=== PATIENT | male | born 1940 | race Caucasian/White ===

== ENCOUNTER 2017-11-06 21:41 | Emergency (ER) | payer MEDICARE ==
--- NOTE | 2017-11-06 22:24 | EDM.PDOC ---
ED HPI GENERAL MEDICAL PROBLEM - General Chief Complaint: General Stated Complaint: LIGHTHEADED, BLOODY STOOL, MALAISE Time Seen by Provider: 11/06/17 22:09 Source of Information: Reports: Patient History Limitations: Reports: No Limitations - History of Present Illness INITIAL COMMENTS - FREE TEXT/NARRATIVE: Patient presents with feeling lightheaded and having burgundy stools. Patient had 5 vessel bypass and an aortic valve replacement on 10-18-2017. Had received 2 units of blood in [place]. On returning home from [place] after 6 days post op , patient had noted dark tarry stools. Was advised to monitor and follow up here in clinic. Was seen in [place] by myself, hemoglobin was maintaining at 8.5, was started on Protonix and followed up closely in clinic. Was started ASA after surgery, no other anticoagulants. Patient had improvement of his hemoglobin with his last one being at 9.1. He was seen 2 days ago in clinic due to shortness of breath. Had lab work, chest xray and CTA. Noted mild CHF and was started on Lasix. Yesterday am, was feeling good and thought he had "turned the corner". PT was there to work with him and he did well. Last evening, started to feel more weak and dizzy, thought it was related to being dehydrated so has been pushing fluids. Now today, developed burgundy stools, has had 3 now this evening. Denies chest pain. Is short of breath and weak. Gets clammy/sweating with activity. Onset: Today, Gradual Duration: Hour(s): Location: Reports: Abdomen Improves with: Reports: Rest Worsens with: Reports: Movement Associated Symptoms: Reports: Diaphoresis, Shortness of Breath, Weakness. Denies: Chest Pain, Cough, Fever/Chills, Nausea/Vomiting - Related Data Allergies Allergy/AdvReac Type Severity Reaction Status Date / Time No Known Allergies Allergy Verified 11/06/17 21:44 Past Medical History HEENT History: Reports: Hard of Hearing Cardiovascular History: Reports: Heart Failure, Hypertension Respiratory History: Reports: Asthma Gastrointestinal History: Reports: GI Bleed - Past Surgical History HEENT Surgical History: Reports: None Cardiovascular Surgical History: Reports: Coronary Artery Bypass, Valve Replacement Respiratory Surgical History: Reports: None GI Surgical History: Reports: None Musculoskeletal Surgical History: Reports: Joint Replacement Social & Family History - Family History Family Medical History: Noncontributory - Tobacco Use Smoking Status *Q: Former Smoker Used Tobacco, but Quit: Yes Month/Year Tobacco Last Used: 1999 - Alcohol Use Days Per Week of Alcohol Use: 4 Number of Drinks Per Day: 3 Total Drinks Per Week: 12 - Recreational Drug Use Recreational Drug Use: No ED ROS GENERAL - Review of Systems Review Of Systems: See Below Constitutional: Reports: Weakness, Fatigue. Denies: Fever, Chills, Malaise, Decreased Appetite HEENT: Reports: No Symptoms Respiratory: Reports: Shortness of Breath. Denies: Cough Cardiovascular: Reports: Edema, Lightheadedness. Denies: Chest Pain Endocrine: Reports: Fatigue GI/Abdominal: Reports: Abdominal Pain (crampy prior to loose stools), Bloody Stool, Diarrhea. Denies: Nausea, Vomiting : Reports: No Symptoms Musculoskeletal: Reports: No Symptoms Skin: Reports: Pallor, Diaphoresis Neurological: Reports: No Symptoms ED EXAM, GENERAL - Physical Exam Exam: See Below Exam Limited By: No Limitations General Appearance: Alert, WD/WN, Mild Distress Ears: Normal External Exam, Normal TMs Nose: Normal Inspection, Normal Mucosa, No Blood Throat/Mouth: Normal Inspection, Normal Oropharynx Head: Normocephalic Neck: Supple Respiratory/Chest: No Respiratory Distress, Lungs Clear, Normal Breath Sounds Cardiovascular: Regular Rate, Rhythm GI/Abdominal: Normal Bowel Sounds, Soft, Non-Tender Rectal (Males) Exam: Heme + Stool Extremities: Other (ecchymosis noted to left leg, swelling yet from surgery ) Neurological: Alert, Oriented Skin Exam: Cool, Pallor, Other (clammy) Course - Vital Signs Last Recorded V/S: Last Vital Signs Temp 99.5 F 11/06/17 23:29 Pulse 77 11/06/17 23:29 Resp 20 11/06/17 23:29 BP 89/48 L 11/06/17 23:29 Pulse Ox 98 11/06/17 21:52 - Orders/Labs/Meds Orders: Active Orders 24 hr Category Date Time Status Verify Patient Consent Obtain [RC] ASDIRECTED Care 11/06/17 22:23 Active Chest 2V [CR] Stat Exams 11/06/17 21:56 Taken Sodium Chloride 0.9% [Normal Saline] 250 ml Med 11/06/17 22:30 Active IV ASDIRECTED Peripheral IV Insertion Adult [OM.PC] Urgent Oth 11/06/17 22:22 Ordered Transfuse Red Blood Cells [COMM] Urgent Oth 11/06/17 22:22 Ordered Medication Orders Sodium Chloride (Normal Saline) 250 mls @ 75 mls/hr IV ASDIRECTED PAO Last Admin: 11/06/17 22:52 Dose: 75 mls/hr Labs: Laboratory Tests 11/06/17 11/06/17 11/06/17 Range/Units 21:56 21:56 21:56 WBC 8.3 (5.0-10.0) 10^3/uL RBC 2.61 L (4.50-6.00) 10^6/uL Hgb 7.4 L* (14.0-18.0) g/dL Hct 24.7 L (40.0-54.0) % MCV 94.6 H (82.0-94.0) fL MCH 28.4 (27.0-32.0) pg MCHC 30.0 L (33.0-38.0) g/dL RDW Coeff of Edyta 13.7 (11.0-15.0) % Plt Count 436 H (150-400) 10^3/uL Neut % (Auto) 72.6 (35-85) % Lymph % (Auto) 16.7 (10-55) % [place] % (Auto) 7.1 (0-16) % Eos % (Auto) 3.0 (0-5) % Baso % (Auto) 0.6 (0-3) % Neut # (Auto) 6.05 (1.80-7.00) 10^3/uL Lymph # (Auto) 1.39 (1.00-4.80) 10^3/uL [place] # (Auto) 0.59 (0.00-0.80) 10^3/uL Eos # (Auto) 0.25 (0.00-0.45) 10^3/uL Baso # (Auto) 0.05 10^3/uL D-Dimer, Quantitative 4.59 H (0.00-0.50) Sodium 138 (136-145) mEq/L Potassium 4.4 (3.5-5.0) mEq/L Chloride 102 (98-106) mEq/L Carbon Dioxide 29 (21-32) mmol/L BUN 33 H (7-18) mg/dL Creatinine 1.3 (0.7-1.3) mg/dL Est Cr Clr Drug Dosing 57.08 mL/min Estimated GFR (MDRD) 54 L (>=60) mL/min Glucose 176 H (75-99) mg/dL Calcium 8.2 L (8.4-10.1) mg/dL NT-Pro-B Natriuret Pep 907 (0-1000) pg/mL Blood Type Gel Antibody Screen Crossmatch 11/06/17 Range/Units 22:22 WBC (5.0-10.0) 10^3/uL RBC (4.50-6.00) 10^6/uL Hgb (14.0-18.0) g/dL Hct (40.0-54.0) % MCV (82.0-94.0) fL MCH (27.0-32.0) pg MCHC (33.0-38.0) g/dL RDW Coeff of Edyta (11.0-15.0) % Plt Count (150-400) 10^3/uL Neut % (Auto) (35-85) % Lymph % (Auto) (10-55) % [place] % (Auto) (0-16) % Eos % (Auto) (0-5) % Baso % (Auto) (0-3) % Neut # (Auto) (1.80-7.00) 10^3/uL Lymph # (Auto) (1.00-4.80) 10^3/uL [place] # (Auto) (0.00-0.80) 10^3/uL Eos # (Auto) (0.00-0.45) 10^3/uL Baso # (Auto) 10^3/uL D-Dimer, Quantitative (0.00-0.50) Sodium (136-145) mEq/L Potassium (3.5-5.0) mEq/L Chloride (98-106) mEq/L Carbon Dioxide (21-32) mmol/L BUN (7-18) mg/dL Creatinine (0.7-1.3) mg/dL Est Cr Clr Drug Dosing mL/min Estimated GFR (MDRD) (>=60) mL/min Glucose (75-99) mg/dL Calcium (8.4-10.1) mg/dL NT-Pro-B Natriuret Pep (0-1000) pg/mL Blood Type A NEGATIVE Gel Antibody Screen Negative Crossmatch See Detail Meds: Medications Generic Name Dose Route Start Last Admin Trade Name Pradeep PRN Reason Stop Dose Admin Sodium Chloride 250 mls @ 75 mls/hr 11/06/17 22:30 11/06/17 22:52 Normal Saline IV 75 mls/hr ASDIRECTED PAO Administration - Re-Assessments/Exams Free Text/Narrative Re-Assessment/Exam: 11/06/17 Contacted [facility] and spoke with Dr. Richards. Agreed to accept the patient in transfer. Discussed transfer with patient and family. Risks of transfer include worsening status to include vehicular crash or . Risks of nontransfer include worsening status, . Benefits of transfer include more specialized care at tertiary facility with surgical consultation. Benefits of nontransfer include care close to home. Patient agrees to transfer. Departure - Departure Time of Disposition: 23:41 Disposition: Home, Self-Care 01 Condition: Undetermined Clinical Impression: GI bleed - Discharge Information *PRESCRIPTION DRUG MONITORING PROGRAM REVIEWED*: No *COPY OF PRESCRIPTION DRUG MONITORING REPORT IN [place]: No Forms: ED Department Discharge Additional Instructions: Transfer ALS to [place] to Dr. Richards. - My Orders Last 24 Hours: My Active Orders 11/06/17 21:56 Chest 2V [CR] Stat 11/06/17 22:22 Peripheral IV Insertion Adult [OM.PC] Urgent Transfuse Red Blood Cells [COMM] Urgent 11/06/17 22:23 Verify Patient Consent Obtain [RC] ASDIRECTED 11/06/17 22:30 Sodium Chloride 0.9% [Normal Saline] 250 ml IV ASDIRECTED - Assessment/Plan Last 24 Hours: My Active Orders 11/06/17 21:56 Chest 2V [CR] Stat 11/06/17 22:22 Peripheral IV Insertion Adult [OM.PC] Urgent Transfuse Red Blood Cells [COMM] Urgent 11/06/17 22:23 Verify Patient Consent Obtain [RC] ASDIRECTED 11/06/17 22:30 Sodium Chloride 0.9% [Normal Saline] 250 ml IV ASDIRECTED
[2017-11-06] MEDS ORDERED: Sodium Chloride 0.9% 250 ML IV SCH (22:30)
== END 2017-11-06 23:45 ==
LOC: CC.ED 21:41 → MERGE 21:41 → CC.ED 23:45
DX: K92.2 Gastrointestinal hemorrhage, unspecified (principal); I11.0 Hypertensive heart disease with heart failure; I50.9 Heart failure, unspecified; J45.909 Unspecified asthma, uncomplicated; Z87.891 Personal history of nicotine dependence; Z95.1 Presence of aortocoronary bypass graft
CPT/HCPCS: 36415; 36430; 71046; 80048; 83880; 85025; 85379; 86850; 86900; 86901; 86920; 86922; 93005; 99285; J7030; P9016

== ENCOUNTER 2017-11-12 22:42 | Emergency (ER) | payer MEDICARE ==
--- NOTE | 2017-11-12 23:33 | EDM.PDOC ---
ED HPI GENERAL MEDICAL PROBLEM - General Chief Complaint: General Stated Complaint: CLAMMY Time Seen by Provider: 11/12/17 23:28 Source of Information: Reports: Patient History Limitations: Reports: No Limitations - History of Present Illness INITIAL COMMENTS - FREE TEXT/NARRATIVE: Julia is a pleasant 77 year old male with PMH significant for CAD, hypertension , hyperlipidemia, BPH, and asthma, who presents to the clinic with c/o dizziness and not feeling well. He reports that around 9 pm this evening he felt kind of clammy and dizzy. He reports he drank some milk and then went to bed. He woke up a few hours later and felt more clammy and dizzy so he presented to the ED. He reports his checked his blood pressure and it was elevated 160's. He did have 5 vessel bypass, a stent, and an aortic valve replacement on 10-18-2017. He then subsequently had a GI bleed after being on aspirin. He was transferred from our local ED to [facility] and then received ~ 5 units of PRBCs. He reports his hemoglobin on discharge was 8.1. He does report he has had occasional productive cough. Does report he has felt fatigued about the past month with everything going on. Reports he does have SOB at baseline, no increase in SOB. He denies any chest pain, N/V/D, bloody stools, abdominal pain. Onset: Today Onset Date: 11/12/17 Onset Time: 21:00 Duration: Intermittent Location: Reports: Head Quality: Reports: Other (dizziness) Associated Symptoms: Reports: cough w sputum, Diaphoresis, Fever/Chills, Shortness of Breath. Denies: Confusion, Chest Pain, Cough, Headaches, Loss of Appetite, Malaise, Nausea/Vomiting, Rash, Seizure, Syncope, Weakness - Related Data Allergies Allergy/AdvReac Type Severity Reaction Status Date / Time No Known Allergies Allergy Verified 11/12/17 22:55 Home Meds: Home Meds Fluticasone/Salmeterol [Advair 250-50 Diskus] 1 puff INH BID 09/09/13 [History] Albuterol Sulfate [Proair Hfa] 1 puff INH Q4H PRN 10/13/17 [History] Umeclidinium Chana [Incruse Ellipta*] 1 puff IH DAILY 10/13/17 [History] amLODIPine Besylate [Amlodipine Besylate] 10 mg PO DAILY 10/13/17 [History] Albuterol Sulfate [Proair Hfa] 1 puff IH DAILY 11/07/17 [History] Amiodarone [Cordarone] 200 mg PO DAILY 11/07/17 [History] Carvedilol [Coreg] 6.25 mg PO BID 11/07/17 [History] Furosemide [Lasix] 40 mg PO DAILY 11/07/17 [History] Lisinopril [Zestril] 2.5 mg PO DAILY 11/07/17 [History] Lutein/Minerals/Vit A,C & E [Ocuvite] 1 tab PO DAILY 11/07/17 [History] Montelukast [Singulair] 10 mg PO DAILY 11/07/17 [History] Potassium Chloride [Klor-Con M20] 20 meq PO DAILY 11/07/17 [History] Sertraline [Zoloft] 50 mg PO DAILY 11/07/17 [History] Tamsulosin [Tamsulosin 24 Hr] 0.4 mg PO DAILY 11/07/17 [History] Vit B Cmplx 3/Fa/Vit C/Biotin [Palak-Kath Rx Tablet] 1 tab PO DAILY 11/07/17 [ History] atorvaSTATin Calcium [Atorvastatin Calcium] 20 mg PO DAILY 11/07/17 [History] hydroCHLOROthiazide [Hydrochlorothiazide] 25 mg PO DAILY 11/07/17 [History] Past Medical History HEENT History: Reports: Hard of Hearing Cardiovascular History: Reports: Heart Failure, Hypertension Respiratory History: Reports: Asthma Gastrointestinal History: Reports: GI Bleed Hematologic History: Reports: Anemia - Past Surgical History HEENT Surgical History: Reports: None Cardiovascular Surgical History: Reports: Coronary Artery Bypass, Valve Replacement Respiratory Surgical History: Reports: None GI Surgical History: Reports: None Musculoskeletal Surgical History: Reports: Joint Replacement Social & Family History - Family History Family Medical History: Noncontributory - Tobacco Use Smoking Status *Q: Former Smoker Years of Tobacco use: 30 Packs/Tins Daily: 3 Used Tobacco, but Quit: Yes Month/Year Tobacco Last Used: 1999 - Alcohol Use Days Per Week of Alcohol Use: 5 Number of Drinks Per Day: 3 Total Drinks Per Week: 15 - Recreational Drug Use Recreational Drug Use: No ED ROS GENERAL - Review of Systems Review Of Systems: See Below Constitutional: Reports: Fever, Chills, Weakness, Fatigue HEENT: Reports: No Symptoms Respiratory: Reports: Shortness of Breath, Cough, Sputum. Denies: Wheezing, Pleuritic Chest Pain Cardiovascular: Reports: Dyspnea on Exertion, Lightheadedness. Denies: Chest Pain, Edema, Palpitations, Syncope Endocrine: Reports: Fatigue GI/Abdominal: Denies: Abdominal Pain, Black Stool, Bloody Stool, Constipation, Diarrhea, Nausea, Vomiting : Denies: Dysuria, Frequency, Urgency Musculoskeletal: Reports: No Symptoms Skin: Reports: No Symptoms Neurological: Reports: Dizziness. Denies: Headache, Numbness, Tingling, Weakness Psychiatric: Reports: No Symptoms Hematologic/Lymphatic: Reports: No Symptoms Immunologic: Reports: No Symptoms ED EXAM, GENERAL - Physical Exam Exam: See Below Exam Limited By: No Limitations General Appearance: Alert, WD/WN, No Apparent Distress Eye Exam: Bilateral Eye: EOMI, PERRL Head: Atraumatic, Normocephalic Neck: Normal Inspection, Supple, Non-Tender, Full Range of Motion Respiratory/Chest: No Respiratory Distress, No Accessory Muscle Use, Chest Non- Tender, Decreased Breath Sounds Cardiovascular: Normal Peripheral Pulses, Regular Rate, Rhythm, No Edema, No Murmur Peripheral Pulses: 2+: Dorsalis Pedis (L), Dorsalis Pedis (R) GI/Abdominal: Normal Bowel Sounds, Soft, Non-Tender, No Organomegaly, No Distention, No Abnormal Bruit, No Mass Back Exam: Normal Inspection, Full Range of Motion, NT Extremities: Normal Inspection, Normal Range of Motion, Non-Tender, No Pedal Edema, Normal Capillary Refill, Other (ecchymosis) Neurological: Alert, Oriented, CN II-XII Intact, Normal Cognition, Normal Gait, Normal Reflexes, No Motor/Sensory Deficits Psychiatric: Normal Affect, Normal Mood Skin Exam: Warm, Dry, Intact, Normal Color, No Rash, Ecchymosis Lymphatic: No Adenopathy EKG INTERPRETATION EKG Date: 11/13/17 Rhythm: NSR Bolt: Normal P-Wave: Present QRS: Normal ST-T: Other (T wave inversion) QT: Normal Comparison: No Change Course - Vital Signs Last Recorded V/S: Last Vital Signs Temp 99.2 F 11/13/17 00:26 Pulse 63 11/13/17 00:26 Resp 18 11/12/17 23:00 BP 117/64 11/13/17 00:26 Pulse Ox 96 11/13/17 00:26 - Orders/Labs/Meds Orders: Active Orders 24 hr Category Date Time Status EKG Documentation Completion [RC] STAT Care 11/12/17 23:07 Active Chest 2V [CR] Stat Exams 11/12/17 23:44 Taken Labs: Laboratory Tests 11/12/17 11/12/17 11/12/17 Range/Units 23:20 23:20 23:49 WBC 6.1 (5.0-10.0) 10^3/uL RBC 2.98 L (4.50-6.00) 10^6/uL Hgb 8.8 L (14.0-18.0) g/dL Hct 28.2 L (40.0-54.0) % MCV 94.6 H (82.0-94.0) fL MCH 29.5 (27.0-32.0) pg MCHC 31.2 L (33.0-38.0) g/dL RDW Coeff of Edyta 14.5 (11.0-15.0) % Plt Count 260 (150-400) 10^3/uL Neut % (Auto) 55.1 (35-85) % Lymph % (Auto) 25.2 (10-55) % [place] % (Auto) 11.1 (0-16) % Eos % (Auto) 8.1 H (0-5) % Baso % (Auto) 0.5 (0-3) % Neut # (Auto) 3.38 (1.80-7.00) 10^3/uL Lymph # (Auto) 1.55 (1.00-4.80) 10^3/uL [place] # (Auto) 0.68 (0.00-0.80) 10^3/uL Eos # (Auto) 0.50 H (0.00-0.45) 10^3/uL Baso # (Auto) 0.03 10^3/uL Sodium 141 (136-145) mEq/L Potassium 4.2 (3.5-5.0) mEq/L Chloride 103 (98-106) mEq/L Carbon Dioxide 31 (21-32) mmol/L BUN 15 D (7-18) mg/dL Creatinine 1.1 (0.7-1.3) mg/dL Est Cr Clr Drug Dosing 67.46 mL/min Estimated GFR (MDRD) > 60 (>=60) mL/min Glucose 97 D (75-99) mg/dL Calcium 8.2 L (8.4-10.1) mg/dL Troponin I 0.027 (0.00-0.06) ng/mL C-Reactive Protein 2.5 H (0.2-0.8) mg/dL Urine Color Yellow (YELLOW) Urine Appearance Clear (CLEAR) Urine pH 6.5 (4.5-8.0) Ur Specific [place] 1.015 (1.003-1.020) Urine Protein Negative (NEGATIVE) mg/dL Urine Glucose (UA) Negative (NEGATIVE) mg/dL Urine Ketones Negative (NEGATIVE) mg/dL Urine Occult Blood Negative (NEGATIVE) Urine Nitrite Negative (NEGATIVE) Urine Bilirubin Negative (NEGATIVE) Urine Urobilinogen 0.2 (0.2-1.0) EU/dL Ur Leukocyte Esterase Negative (NEGATIVE) Urine RBC Not seen (0-5) /HPF Urine WBC 0-5 (0-5) /HPF Ur Squamous Epith Cells Occasional H (NOT SEEN) /HPF - Re-Assessments/Exams Free Text/Narrative Re-Assessment/Exam: 11/13/17 00:21 Discussed labs, EKG, and CXR with patient and spouse. CXR shows small bilateral pleural effusions, but no infiltrates. VSS on RA. Patient alert and oriented. Does have some dizziness when up. Reports he feels comfortable going home. Departure - Departure Time of Disposition: 00:22 Disposition: Home, Self-Care 01 Condition: Good Clinical Impression: Status post coronary artery bypass graft Anemia Qualifiers: Anemia type: iron deficiency Iron deficiency anemia type: chronic blood loss Qualified Code(s): D50.0 - Iron deficiency anemia secondary to blood loss ( chronic) - Discharge Information *PRESCRIPTION DRUG MONITORING PROGRAM REVIEWED*: Not Applicable *COPY OF PRESCRIPTION DRUG MONITORING REPORT IN [place]: Not Applicable Instructions: Anemia Referrals: Chris Beard MD [Primary Care Provider] - Forms: ED Department Discharge Additional Instructions: Tylenol as needed for fever/discomfort Rest Push fluids Recheck in clinic tomorrow morning if still not feeling well, otherwise follow up with PCP in the next 5 days for ED recheck - My Orders Last 24 Hours: My Active Orders 11/12/17 23:07 EKG Documentation Completion [RC] STAT 11/12/17 23:44 Chest 2V [CR] Stat - Assessment/Plan Last 24 Hours: My Active Orders 11/12/17 23:07 EKG Documentation Completion [RC] STAT 11/12/17 23:44 Chest 2V [CR] Stat Plan: Patient discharged home in satisfactory condition. Voiced understanding to present to ED with any worsening symptoms or onset of chest pain.
[2017-11-12 23:40] LABS: CHLORIDE,CL 103 mEq/L (98-106); SODIUM,NA 141 mEq/L (136-145)
== END 2017-11-13 00:35 | disposition home or self-care (01) ==
LOC: CC.ED 22:42
DX: D50.0 Iron deficiency anemia secondary to blood loss (chronic) (principal); I11.0 Hypertensive heart disease with heart failure; I50.9 Heart failure, unspecified; Z87.891 Personal history of nicotine dependence; Z95.1 Presence of aortocoronary bypass graft
CPT/HCPCS: 36415; 71046; 80048; 81001; 84484; 85025; 86140; 93005; 99284

== ENCOUNTER 2019-10-14 13:18 | Emergency (ER) | payer MEDICARE ==
[2019-10-14] MEDS ORDERED: Sodium Chloride 0.9% 10 ML Syringe FLUSH PRN (13:37)
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
[2019-10-14 13:54] LABS: CHLORIDE,CL 106 mEq/L (98-106); SODIUM,NA 140 mEq/L (136-145)
[2019-10-14] MEDS ORDERED: Diphtheria,Pertussis(Acell),Tetanus Vaccine 0.5 ML Syringe IM ONE (14:29)
[2019-10-14] MEDS ORDERED: Morphine 4 MG/ML VIAL IVPUSH ONE (15:00)
[2019-10-14] MEDS ORDERED: Ondansetron 4 MG/2 ML SDV IVPUSH STA (15:00)
== END 2019-10-14 15:23 ==
LOC: CC.ED 13:18
DX: S82.51XB Displaced fracture of medial malleolus of right tibia, initial encounter for open fracture type I or II (principal); S82.831B Other fracture of upper and lower end of right fibula, initial encounter for open fracture type I or II; S20.311A Abrasion of right front wall of thorax, initial encounter; I11.0 Hypertensive heart disease with heart failure; I50.9 Heart failure, unspecified; I25.2 Old myocardial infarction; J45.909 Unspecified asthma, uncomplicated; Z23 Encounter for immunization; Z87.891 Personal history of nicotine dependence; Z95.1 Presence of aortocoronary bypass graft; Z79.899 Other long term (current) drug therapy; W11.XXXA Fall on and from ladder, initial encounter
CPT/HCPCS: 29515; 36415; 71045; 73080; 73610; 80053; 82150; 83605; 85025; 85610; 90471; 90715; 93005; 93010; 96374; 96375; 99283; 99285; J2270; J2405

== ENCOUNTER 2020-09-16 16:52 | Inpatient (IN) | payer MEDICARE ==
[2020-09-16] MEDS ORDERED: Acetaminophen 325 MG Tab PO ONE (17:05)
[2020-09-16] MEDS ORDERED: Sodium Chloride 0.9% 1,000 ML IV ONE (17:16)
--- NOTE | 2020-09-16 17:40 | EDM.PDOC ---
ED HPI GENERAL MEDICAL PROBLEM - General Chief Complaint: General Stated Complaint: fever,chills, SOB Time Seen by Provider: 09/16/20 17:30 Source of Information: Reports: Patient, EMS, Family History Limitations: Reports: No Limitations - History of Present Illness INITIAL COMMENTS - FREE TEXT/NARRATIVE: Julia is a 80 yo male who presents to the ED via EMS with c/o fever and shaking. He reports at about noon today he started to feel very chilled and was more shaky than usual. He reports he didn't think much of it and continued to go about his day. Reports around 5 pm he was shaking much worse and was unable to get out of the chair as he was very weak. EMS was called. Temperature was 105 deg F in EMS. Upon arrival temp is 103.9. Patient reports he has chronic cough. Does report cough has been more productive the last few days. Does not feel more SOB than baseline. Denies any chest pain, N/V/D, dizziness. Denies any recent illness or known ill contact. He reports up until this afternoon he has been feeling at baseline. Family and EMS noted garbled speech initially upon presentation. 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 Has not noticed any red ness/swelling to area. Does also have hardware in his right ankle. This has been causing him pain. Area has been swollen. Saw PT this morning for this. Area is not red/warm. 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 Onset: Today Onset Date: 09/16/20 Onset Time: 12:00 Location: Reports: Generalized Associated Symptoms: Reports: Cough, cough w sputum, Diaphoresis, Fever/Chills, Malaise, Shortness of Breath (baseline), Weakness, Other (right ankle pain). Denies: Confusion, Chest Pain, Headaches, Loss of Appetite, Nausea/Vomiting, Rash, Seizure, Syncope Right Ankle Pain Score (Numeric/FACES): 5 - Related Data Allergies Allergy/AdvReac Type Severity Reaction Status Date / Time No Known Allergies Allergy Verified 09/16/20 19:43 Home Meds: Home Meds Fluticasone/Salmeterol [Advair 250-50 Diskus] 1 puff INH BID 09/09/13 [History] Albuterol Sulfate [Proair Hfa] 1 puff INH Q4H PRN 10/13/17 [History] Umeclidinium Henderson [Incruse Ellipta*] 1 puff IH DAILY 10/13/17 [History] Lutein/Minerals/Vit A,C & E [Ocuvite] 1 tab PO DAILY 11/07/17 [History] Montelukast [Singulair] 10 mg PO DAILY 11/07/17 [History] Sertraline [Zoloft] 50 mg PO DAILY 11/07/17 [History] Tamsulosin [Tamsulosin 24 Hr] 2 tab PO DAILY 11/07/17 [History] Vit B Cmplx 3/Fa/Vit C/Biotin [Palak-Kath Rx Tablet] 1 tab PO DAILY 11/07/17 [History] atorvaSTATin Calcium [Atorvastatin Calcium] 20 mg PO DAILY 11/07/17 [History] carvediloL [Coreg] 3.125 mg PO BID 11/07/17 [History] Amoxicillin 500 mg PO ASDIRECTED PRN 04/04/20 [History] Ascorbic Acid [Vitamin C] 500 mg PO DAILY 04/04/20 [History] Calcium Citrate/Vitamin D3 [Calcitrate + Vit D Cap (315 MG/250 UNITS)] 2 tab PO BID 04/04/20 [History] Melatonin 5 mg PO ASDIRECTED PRN 04/04/20 [History] Ubidecarenone [Co Q-10] 1 cap PO DAILY 04/04/20 [History] Zinc 50 mg PO DAILY 04/04/20 [History] Zolpidem Tartrate 10 mg PO BEDTIME PRN 04/04/20 [History] guaiFENesin [Mucus Relief Chest Congestion] 400 mg PO DAILY 04/04/20 [History] Past Medical History HEENT History: Reports: Hard of Hearing Cardiovascular History: Reports: CAD, Heart Failure, Heart Valve Replacement, Hypertension, [place], SOB on Exertion, Stents Respiratory History: Reports: Asthma Gastrointestinal History: Reports: GI Bleed Hematologic History: Reports: Anemia Oncologic (Cancer) History: Reports: Non-Hodgkin's Lymphoma - Past Surgical History HEENT Surgical History: Reports: None Cardiovascular Surgical History: Reports: Coronary Artery Bypass, Valve Replacement Respiratory Surgical History: Reports: None GI Surgical History: Reports: None Musculoskeletal Surgical History: Reports: Joint Replacement Social & Family History - Family History Family Medical History: No Pertinent Family History - Tobacco Use Tobacco Use Status *Q: Former Tobacco User Used Tobacco, but Quit: Yes Month/Year Tobacco Last Used: 1990 - Caffeine Use Caffeine Use: Reports: None - Recreational Drug Use Recreational Drug Use: No ED ROS GENERAL - Review of Systems Review Of Systems: See Below Constitutional: Reports: Fever, Chills, Malaise, Weakness, Fatigue, Diaphoresis HEENT: Reports: No Symptoms Respiratory: Reports: Shortness of Breath, Cough, Sputum Cardiovascular: Reports: Dyspnea on Exertion (baseline). Denies: Chest Pain, Edema, Lightheadedness, Syncope Endocrine: Reports: Fatigue GI/Abdominal: Denies: Abdominal Pain, Diarrhea, Nausea, Vomiting : Reports: No Symptoms Musculoskeletal: Reports: Joint Pain (right ankle) Skin: Denies: Erythema, Wound Neurological: Reports: Weakness, Change in Speech (slightly garbled speech upon arrival ). Denies: Confusion, Dizziness, Headache, Numbness, Tingling Psychiatric: Reports: No Symptoms Hematologic/Lymphatic: Reports: No Symptoms Immunologic: Reports: No Symptoms ED EXAM, GENERAL - Physical Exam Exam: See Below Exam Limited By: No Limitations General Appearance: Alert, WD/WN, No Apparent Distress Eye Exam: Bilateral Eye: EOMI, Normal Fundi, Normal Inspection, PERRL Throat/Mouth: Normal Inspection, Normal Lips, Normal Teeth, Normal Gums, Normal Oropharynx, Normal Voice, No Airway Compromise Head: Atraumatic, Normocephalic Neck: Normal Inspection, Supple, Non-Tender, Full Range of Motion Respiratory/Chest: No Respiratory Distress, No Accessory Muscle Use, Wheezing Cardiovascular: Normal Peripheral Pulses, Regular Rate, Rhythm, No Edema Peripheral Pulses: 2+: Dorsalis Pedis (L), Dorsalis Pedis (R) GI/Abdominal: Normal Bowel Sounds, Soft, Non-Tender, No Organomegaly, No Distention, No Abnormal Bruit, No Mass Back Exam: Normal Inspection, Full Range of Motion, NT Extremities: Normal Range of Motion, Normal Capillary Refill, Joint Swelling (right ankle moderate swelling, no erythema or warmth) Neurological: Alert, Oriented, CN II-XII Intact, Normal Cognition, Normal Gait, Normal Reflexes, No Motor/Sensory Deficits Psychiatric: Normal Affect, Normal Mood Skin Exam: Dry, Intact, Normal Color, Diaphoretic Course - Vital Signs Last Recorded V/S: Last Vital Signs Temp 99.8 F 09/16/20 22:30 Pulse 113 H 09/16/20 17:42 Resp 18 09/16/20 17:42 BP 142/88 H 09/16/20 17:42 Pulse Ox 92 L 09/16/20 17:42 - Orders/Labs/Meds Orders: Active Orders 24 hr Category Date Time Status Patient Status [ADT] Routine ADT 09/16/20 19:27 Active Cardiac Monitoring [RC] 0800,2000 Care 09/16/20 19:27 Active Oxygen Therapy [RC] PRN Care 09/16/20 19:27 Active Pulse Oximetry [RC] PRN Care 09/16/20 19:27 Active Up With Assistance [RC] ASDIRECTED Care 09/16/20 19:27 Active Vital Signs [RC] 0800,1200,1600,2000,0000,0400 Care 09/16/20 19:27 Active Regular Diet [DIET] Diet 09/16/20 Breakfast Active Chest 2V [CR] Stat Exams 09/16/20 17:15 Taken Head wo Cont [CT] Stat Exams 09/16/20 17:03 Taken BASIC METABOLIC PANEL,BMP [CHEM] DAILY Lab 09/17/20 07:00 Ordered BASIC METABOLIC PANEL,BMP [CHEM] DAILY Lab 09/18/20 07:00 Ordered BASIC METABOLIC PANEL,BMP [CHEM] DAILY Lab 09/19/20 07:00 Ordered C-REACTIVE PROTEIN [CHEM] DAILY Lab 09/17/20 07:00 Ordered C-REACTIVE PROTEIN [CHEM] DAILY Lab 09/18/20 07:00 Ordered C-REACTIVE PROTEIN [CHEM] DAILY Lab 09/19/20 07:00 Ordered CBC WITH AUTO DIFF [HEME] DAILY Lab 09/17/20 07:00 Ordered CBC WITH AUTO DIFF [HEME] DAILY Lab 09/18/20 07:00 Ordered CBC WITH AUTO DIFF [HEME] DAILY Lab 09/19/20 07:00 Ordered CULTURE BLOOD [BC] Stat Lab 09/16/20 17:14 Results CULTURE BLOOD [BC] Stat Lab 09/16/20 17:55 Received LACTIC ACID [CHEM] Routine Lab 09/17/20 07:00 Ordered Acetaminophen [TylenoL] Med 09/16/20 19:27 Active 650 mg PO Q4H PRN Enoxaparin [Lovenox] Med 09/17/20 09:00 Active 40 mg SUBCUT Q24H Ibuprofen [Motrin] Med 09/16/20 19:27 Active 400 mg PO Q6H PRN Pharmacy to Dose - Vancomycin Med 09/17/20 07:00 Pending 1 dose .XX ASDIRECTED Piperacillin/Tazobactam [Zosyn] 4.5 gm Med 09/17/20 03:00 Active Sodium Chloride 0.9% [Normal Saline] 100 ml IV Q8H Resuscitation Status Routine Resus Stat 09/16/20 18:49 Ordered Medication Orders Acetaminophen (Acetaminophen 325 Mg Tab) 650 mg PO Q4H PRN PRN Reason: Pain (Mild 1-3)/fever Enoxaparin Sodium (Enoxaparin 40 Mg/0.4 Ml Syringe) 40 mg SUBCUT Q24H PAO Piperacillin Sod/Tazobactam (Sod 4.5 gm/ Sodium Chloride) 100 mls @ 25 mls/hr IV Q8H PAO Vancomycin HCl (Vancomycin 1.5 Gm/300 Ml) 300 mls @ 150 mls/hr IV Q12H PAO Ibuprofen (Ibuprofen 200 Mg Tab) 400 mg PO Q6H PRN PRN Reason: Pain (mild 1-3) Last Admin: 09/16/20 22:30 Dose: 400 mg Documented by: NAVNEET Vancomycin HCl (Pharmacy To Dose - Vancomycin) 1 dose .XX ASDIRECTED [facility] Labs: Laboratory Tests 09/16/20 09/16/20 09/16/20 Range/Units 17:02 17:02 17:02 WBC 15.4 H (4.0-11.0) 10^3/uL RBC 5.18 (4.50-6.00) x10^6/uL Hgb 15.6 (14.0-18.0) g/dL Hct 45.7 (42.0-52.0) % MCV 88.2 (83.0-97.0) fL MCH 30.1 (27.0-32.0) pg MCHC 34.1 (32.0-36.0) g/dL RDW Coeff of Edyta 12.4 (11.0-15.0) % Plt Count 218 (150-400) 10^3/uL Immature Gran % (Auto) 0.3 (0.0-4.9) % Neut % (Auto) 87.9 H (41-71) % Lymph % (Auto) 5.1 L (24-44) % [place] % (Auto) 6.4 (0-10) % Eos % (Auto) 0.1 (0-6) % Baso % (Auto) 0.2 (0-1) % Neut # (Auto) 13.57 H (1.80-8.00) x10^3/uL Lymph # (Auto) 0.79 (0.60-5.00) 10^3/uL [place] # (Auto) 0.98 (0.00-1.50) 10^3/uL Eos # (Auto) 0.01 (0.00-1.50) 10^3/uL Baso # (Auto) 0.03 (0.00-0.50) 10^3/uL Immature Gran # (Auto) 0.04 (0.00-0.49) 10^3/uL PT 11.4 (9.7-12.3) SEC INR 1.05 (0.92-1.18) Sodium 139 (136-145) mEq/L Potassium 3.8 (3.5-5.0) mEq/L Chloride 102 (98-106) mEq/L Carbon Dioxide 22 (21-32) mmol/L BUN 12 (7-18) mg/dL Creatinine 1.0 (0.7-1.3) mg/dL Est Cr Clr Drug Dosing 68.80 mL/min Estimated GFR (MDRD) > 60 (>=60) mL/min Glucose 143 H D (75-99) mg/dL POC Glucose (75-105) mg/dL Lactic Acid (0.4-2.0) mmol/L Calcium 8.9 (8.4-10.1) mg/dL Total Bilirubin 0.9 (0.0-1.0) mg/dL AST 23 (15-37) U/L ALT 27 (12-78) U/L Alkaline Phosphatase 76 (46-116) U/L Creatine Kinase 34 L (35-232) U/L Troponin I < 0.017 (0.00-0.06) ng/mL C-Reactive Protein 11.3 H (0.2-0.8) mg/dL Total Protein 7.0 (6.4-8.2) g/dL Albumin 3.3 L (3.4-5.0) g/dL Urine Color (YELLOW) Urine Appearance (CLEAR) Urine pH (4.5-8.0) Ur Specific [place] (1.003-1.020) Urine Protein (NEGATIVE) mg/dL Urine Glucose (UA) (NEGATIVE) mg/dL Urine Ketones (NEGATIVE) mg/dL Urine Occult Blood (NEGATIVE) Urine Nitrite (NEGATIVE) Urine Bilirubin (NEGATIVE) Urine Urobilinogen (0.2-1.0) EU/dL Ur Leukocyte Esterase (NEGATIVE) SARS CoV-2 RNA Rapid THOMAS (NEGATIVE) 09/16/20 09/16/20 09/16/20 Range/Units 17:03 17:36 18:02 WBC (4.0-11.0) 10^3/uL RBC (4.50-6.00) x10^6/uL Hgb (14.0-18.0) g/dL Hct (42.0-52.0) % MCV (83.0-97.0) fL MCH (27.0-32.0) pg MCHC (32.0-36.0) g/dL RDW Coeff of Edyta (11.0-15.0) % Plt Count (150-400) 10^3/uL Immature Gran % (Auto) (0.0-4.9) % Neut % (Auto) (41-71) % Lymph % (Auto) (24-44) % [place] % (Auto) (0-10) % Eos % (Auto) (0-6) % Baso % (Auto) (0-1) % Neut # (Auto) (1.80-8.00) x10^3/uL Lymph # (Auto) (0.60-5.00) 10^3/uL [place] # (Auto) (0.00-1.50) 10^3/uL Eos # (Auto) (0.00-1.50) 10^3/uL Baso # (Auto) (0.00-0.50) 10^3/uL Immature Gran # (Auto) (0.00-0.49) 10^3/uL PT (9.7-12.3) SEC INR (0.92-1.18) Sodium (136-145) mEq/L Potassium (3.5-5.0) mEq/L Chloride (98-106) mEq/L Carbon Dioxide (21-32) mmol/L BUN (7-18) mg/dL Creatinine (0.7-1.3) mg/dL Est Cr Clr Drug Dosing mL/min Estimated GFR (MDRD) (>=60) mL/min Glucose (75-99) mg/dL POC Glucose 160 H (75-105) mg/dL Lactic Acid (0.4-2.0) mmol/L Calcium (8.4-10.1) mg/dL Total Bilirubin (0.0-1.0) mg/dL AST (15-37) U/L ALT (12-78) U/L Alkaline Phosphatase (46-116) U/L Creatine Kinase (35-232) U/L Troponin I (0.00-0.06) ng/mL C-Reactive Protein (0.2-0.8) mg/dL Total Protein (6.4-8.2) g/dL Albumin (3.4-5.0) g/dL Urine Color Yellow (YELLOW) Urine Appearance Clear (CLEAR) Urine pH 5.5 (4.5-8.0) Ur Specific [place] 1.020 (1.003-1.020) Urine Protein Negative (NEGATIVE) mg/dL Urine Glucose (UA) Negative (NEGATIVE) mg/dL Urine Ketones Negative (NEGATIVE) mg/dL Urine Occult Blood Negative (NEGATIVE) Urine Nitrite Negative (NEGATIVE) Urine Bilirubin Negative (NEGATIVE) Urine Urobilinogen 0.2 (0.2-1.0) EU/dL Ur Leukocyte Esterase Negative (NEGATIVE) SARS CoV-2 RNA Rapid THOMAS Negative (NEGATIVE) 09/16/20 Range/Units 18:44 WBC (4.0-11.0) 10^3/uL RBC (4.50-6.00) x10^6/uL Hgb (14.0-18.0) g/dL Hct (42.0-52.0) % MCV (83.0-97.0) fL MCH (27.0-32.0) pg MCHC (32.0-36.0) g/dL RDW Coeff of Edyta (11.0-15.0) % Plt Count (150-400) 10^3/uL Immature Gran % (Auto) (0.0-4.9) % Neut % (Auto) (41-71) % Lymph % (Auto) (24-44) % [place] % (Auto) (0-10) % Eos % (Auto) (0-6) % Baso % (Auto) (0-1) % Neut # (Auto) (1.80-8.00) x10^3/uL Lymph # (Auto) (0.60-5.00) 10^3/uL [place] # (Auto) (0.00-1.50) 10^3/uL Eos # (Auto) (0.00-1.50) 10^3/uL Baso # (Auto) (0.00-0.50) 10^3/uL Immature Gran # (Auto) (0.00-0.49) 10^3/uL PT (9.7-12.3) SEC INR (0.92-1.18) Sodium (136-145) mEq/L Potassium (3.5-5.0) mEq/L Chloride (98-106) mEq/L Carbon Dioxide (21-32) mmol/L BUN (7-18) mg/dL Creatinine (0.7-1.3) mg/dL Est Cr Clr Drug Dosing mL/min Estimated GFR (MDRD) (>=60) mL/min Glucose (75-99) mg/dL POC Glucose (75-105) mg/dL Lactic Acid 2.0 (0.4-2.0) mmol/L Calcium (8.4-10.1) mg/dL Total Bilirubin (0.0-1.0) mg/dL AST (15-37) U/L ALT (12-78) U/L Alkaline Phosphatase (46-116) U/L Creatine Kinase (35-232) U/L Troponin I (0.00-0.06) ng/mL C-Reactive Protein (0.2-0.8) mg/dL Total Protein (6.4-8.2) g/dL Albumin (3.4-5.0) g/dL Urine Color (YELLOW) Urine Appearance (CLEAR) Urine pH (4.5-8.0) Ur Specific [place] (1.003-1.020) Urine Protein (NEGATIVE) mg/dL Urine Glucose (UA) (NEGATIVE) mg/dL Urine Ketones (NEGATIVE) mg/dL Urine Occult Blood (NEGATIVE) Urine Nitrite (NEGATIVE) Urine Bilirubin (NEGATIVE) Urine Urobilinogen (0.2-1.0) EU/dL Ur Leukocyte Esterase (NEGATIVE) SARS CoV-2 RNA Rapid THOMAS (NEGATIVE) Meds: Medications Generic Name Dose Route Start Last Admin Trade Name Fremalathi PRN Reason Stop Dose Admin Acetaminophen 650 mg 09/16/20 19:27 Acetaminophen 325 Mg Tab PO Q4H PRN Pain (Mild 1-3)/fever Enoxaparin Sodium 40 mg 09/17/20 09:00 Enoxaparin 40 Mg/0.4 Ml Syringe SUBCUT Q24H [facility] Piperacillin Sod/Tazobactam 100 mls @ 25 mls/hr 09/17/20 03:00 Sod 4.5 gm/ Sodium Chloride IV Q8H PAO Vancomycin HCl 300 mls @ 150 mls/hr 09/17/20 08:00 Vancomycin 1.5 Gm/300 Ml IV Q12H PAO Ibuprofen 400 mg 09/16/20 19:27 09/16/20 22:30 Ibuprofen 200 Mg Tab PO 400 mg Q6H PRN Administration Pain (mild 1-3) Vancomycin HCl 1 dose 09/17/20 07:00 Pharmacy To Dose - Vancomycin .XX ASDIRECTED PAO Discontinued Medications Generic Name Dose Route Start Last Admin Trade Name Prdaeep PRN Reason Stop Dose Admin Acetaminophen 1,000 mg 09/16/20 17:05 09/16/20 17:08 Acetaminophen 325 Mg Tab PO 09/16/20 17:06 1,000 mg NOW ONE Administration Sodium Chloride 1,000 mls @ 500 mls/hr 09/16/20 17:16 09/16/20 17:46 Normal Saline IV 09/16/20 19:15 500 mls/hr .BOLUS ONE Administration Vancomycin HCl 1 gm/ Sodium 250 mls @ 167 mls/hr 09/16/20 17:57 09/16/20 18:08 Chloride IV 09/16/20 19:26 167 mls/hr STAT ONE Administration Piperacillin Sod/Tazobactam 100 mls @ 200 mls/hr 09/16/20 17:58 09/16/20 19:49 Sod 4.5 gm/ Sodium Chloride IV 09/16/20 18:27 200 mls/hr STAT ONE Administration Vancomycin HCl 200 mls @ 200 mls/hr 09/16/20 19:45 09/16/20 19:53 Vancomycin 1 Gm/200 Ml IV 09/16/20 20:44 Not Given ONETIME ONE - Radiology Interpretation Free Text/Narrative:: Negative for acute findings. CT Results Date: 09/16/20 CT Results Time: 18:26 - Re-Assessments/Exams Free Text/Narrative Re-Assessment/Exam: 09/16/20 18:[address] Richards regarding fever of unknown origin in high risk patient with aortic valve. Recommends echo in am and continued vanco/zosyn while awaiting blood cultures. Does not feel there is anything different they would do at higher level of care until echo and blood culture results are available. Discussed labs, EKG, CXR and head CT results with patent and . Discussed concern of fever with no known source of infection and patient having prosthetic heart valve, hardware in ankle and total knee. Discussed admission for continued IV antibiotic while blood cultures pending and echocardiogram. Patient agreeable. Departure - Departure Time of Disposition: 19:25 Disposition: DC/Tfer to [facility] 02 Condition: Fair Clinical Impression: Fever of unknown origin Sepsis Qualifiers: Sepsis type: sepsis due to unspecified organism Sepsis acute organ dysfunction status: without acute organ dysfunction Qualified Code(s): A41.9 - Sepsis, unspecified organism - Discharge Information *PRESCRIPTION DRUG MONITORING PROGRAM REVIEWED*: Not Applicable *COPY OF PRESCRIPTION DRUG MONITORING REPORT IN [place]: Not Applicable Sepsis Event Note (ED) - Evaluation Sepsis Screening Result: Possible Sepsis Risk - Focused Exam Vital Signs: Vital Signs Temp Pulse Resp BP Pulse Ox 09/16/20 17:42 102.8 F H 113 H 18 142/88 H 92 L 09/16/20 17:17 103.1 F H 116 H 18 140/91 H 92 L 09/16/20 17:02 103.9 F H 115 H 18 147/83 H 93 L 09/16/20 16:52 103.9 F H 114 H 18 144/71 H 92 L - Problem List & Annotations (1) Sepsis SNOMED Code(s): 55200776 Code(s): A41.9 - SEPSIS, UNSPECIFIED ORGANISM Status: Acute Current Visit: Yes Qualifiers: Sepsis type: sepsis due to unspecified organism Sepsis acute organ dysfunction status: without acute organ dysfunction Qualified Code(s): A41.9 - Sepsis, unspecified organism (2) Fever of unknown origin SNOMED Code(s): 4859153 Code(s): R50.9 - FEVER, UNSPECIFIED Status: Acute Current Visit: Yes (3) Right ankle pain SNOMED Code(s): 138227674, 379135256 Code(s): M25.571 - PAIN IN RIGHT ANKLE AND JOINTS OF RIGHT FOOT Status: Acute Current Visit: Yes Qualifiers: Chronicity: acute Qualified Code(s): M25.571 - Pain in right ankle and daniel nts of right foot - Problem List Review Problem List Initiated/Reviewed/Updated: Yes - My Orders Last 24 Hours: My Active Orders 09/16/20 Breakfast Regular Diet [DIET] 09/16/20 17:03 Head wo Cont [CT] Stat 09/16/20 17:14 CULTURE BLOOD [BC] Stat 09/16/20 17:15 Chest 2V [CR] Stat 09/16/20 17:55 CULTURE BLOOD [BC] Stat 09/16/20 18:49 Resuscitation Status Routine 09/16/20 19:27 Acetaminophen [TylenoL] 650 mg PO Q4H PRN Ibuprofen [Motrin] 400 mg PO Q6H PRN 09/16/20 19:27 Patient Status [ADT] Routine Cardiac Monitoring [RC] 0800,2000 Oxygen Therapy [RC] PRN Pulse Oximetry [RC] PRN Up With Assistance [RC] ASDIRECTED Vital Signs [RC] 0800,1200,1600,2000,0000,0400 09/17/20 03:00 Piperacillin/Tazobactam [Zosyn] 4.5 gm Sodium Chloride 0.9% [Normal Saline] 100 ml IV Q8H 09/17/20 07:00 BASIC METABOLIC PANEL,BMP [CHEM] DAILY C-REACTIVE PROTEIN [CHEM] DAILY CBC WITH AUTO DIFF [HEME] DAILY LACTIC ACID [CHEM] Routine Pharmacy to Dose - Vancomycin 1 dose .XX ASDIRECTED 09/17/20 09:00 Enoxaparin [Lovenox] 40 mg SUBCUT Q24H 09/18/20 07:00 BASIC METABOLIC PANEL,BMP [CHEM] DAILY C-REACTIVE PROTEIN [CHEM] DAILY CBC WITH AUTO DIFF [HEME] DAILY 09/19/20 07:00 BASIC METABOLIC PANEL,BMP [CHEM] DAILY C-REACTIVE PROTEIN [CHEM] DAILY CBC WITH AUTO DIFF [HEME] DAILY - Assessment/Plan Admission H&P: Please use this note as an admission H&P Last 24 Hours: My Active Orders 09/16/20 Breakfast Regular Diet [DIET] 09/16/20 17:03 Head wo Cont [CT] Stat 09/16/20 17:14 CULTURE BLOOD [BC] Stat 09/16/20 17:15 Chest 2V [CR] Stat 09/16/20 17:55 CULTURE BLOOD [BC] Stat 09/16/20 18:49 Resuscitation Status Routine 09/16/20 19:27 Acetaminophen [TylenoL] 650 mg PO Q4H PRN Ibuprofen [Motrin] 400 mg PO Q6H PRN 09/16/20 19:27 Patient Status [ADT] Routine Cardiac Monitoring [RC] 0800,2000 Oxygen Therapy [RC] PRN Pulse Oximetry [RC] PRN Up With Assistance [RC] ASDIRECTED Vital Signs [RC] 0800,1200,1600,2000,0000,0400 09/17/20 03:00 Piperacillin/Tazobactam [Zosyn] 4.5 gm Sodium Chloride 0.9% [Normal Saline] 100 ml IV Q8H 09/17/20 07:00 BASIC METABOLIC PANEL,BMP [CHEM] DAILY C-REACTIVE PROTEIN [CHEM] DAILY CBC WITH AUTO DIFF [HEME] DAILY LACTIC ACID [CHEM] Routine Pharmacy to Dose - Vancomycin 1 dose .XX ASDIRECTED 09/17/20 09:00 Enoxaparin [Lovenox] 40 mg SUBCUT Q24H 09/18/20 07:00 BASIC METABOLIC PANEL,BMP [CHEM] DAILY C-REACTIVE PROTEIN [CHEM] DAILY CBC WITH AUTO DIFF [HEME] DAILY 09/19/20 07:00 BASIC METABOLIC PANEL,BMP [CHEM] DAILY C-REACTIVE PROTEIN [CHEM] DAILY CBC WITH AUTO DIFF [HEME] DAILY Assessment:: Sepsis Fever of unknown origin Right Ankle Pain Plan: Admit acute with telemetry. WBC elevated to 15.4. CRP 11.3. Labs otherwise stable. Head CT negative. Speech improved. Chest xray negative. UA negative. No obvious source of infection identified. Continue Vanco and Zosyn while blood cultures pending. Will get echocardiogram in am given prosthetic aortic valve. Continue to closely monitor right ankle for any s/s of infection given hardware Patient transferred to floor in satisfactory condition. Temperature improved with administration of Tylenol. Speech improved.
[2020-09-16 17:53] LABS: CHLORIDE,CL 102 mEq/L (98-106); SODIUM,NA 139 mEq/L (136-145)
[2020-09-16] MEDS ORDERED: Piperacillin/Tazobactam 4.5 GM in Sodium Chloride 0.9% 100 ML IV ONE (17:58)
[2020-09-16] MEDS ORDERED: Ibuprofen 200 MG Tab PO PRN (19:27)
[2020-09-16] MEDS ORDERED: VANCOmycin 1 GM/200 ML 200 ML IV ONE (19:45)
[2020-09-17] MEDS: Acetaminophen 325 MG Tab PO PRN ×2 (03:21→19:40)
[2020-09-17] MEDS: Piperacillin/Tazobactam 4.5 GM in Sodium Chloride 0.9% 100 ML IV SCH ×3 (03:22→19:28)
[2020-09-17 08:01] LABS: CHLORIDE,CL 104 mEq/L (98-106); SODIUM,NA 141 mEq/L (136-145)
[2020-09-17] MEDS: Enoxaparin 40 MG/0.4 ML Syringe SUBCUT SCH (09:24)
[2020-09-17] MEDS: VANCOmycin 1.5 GM/300 ML 300 ML IV SCH ×2 (09:24→21:20)
[2020-09-17] MEDS ORDERED: Acetaminophen 325 MG Tab PO PRN (12:09)
[2020-09-17] MEDS ORDERED: Melatonin 3 MG Tab PO PRN (12:14)
[2020-09-17] MEDS ORDERED: Albuterol 8 GM Inhaler INH PRN (12:15)
[2020-09-17] MEDS: Sertraline 100 MG Tab PO SCH (12:31)
[2020-09-17] MEDS: Carvedilol 6.25 MG Tab PO SCH ×2 (12:32→19:38)
[2020-09-17] MEDS: Formoterol/Mometasone 200-5 MCG 8.8 GM Inhaler IH SCH ×2 (12:33→19:42)
[2020-09-17] MEDS: Tiotropium Inhaler 18 MCG Inhalation Powder Cap Kit of 5 INH SCH (12:36)
[2020-09-17] MEDS ORDERED: Tamsulosin 0.4 MG Cap.ER PO SCH (20:00)
[2020-09-17] MEDS ORDERED: Montelukast 10 MG Tab PO SCH (20:00)
[2020-09-18] MEDS: Piperacillin/Tazobactam 4.5 GM in Sodium Chloride 0.9% 100 ML IV SCH ×2 (02:59→11:08)
[2020-09-18] MEDS: Acetaminophen 325 MG Tab PO PRN (05:08)
[2020-09-18] MEDS: Sertraline 100 MG Tab PO SCH (07:37)
[2020-09-18] MEDS: Carvedilol 6.25 MG Tab PO SCH (07:38)
[2020-09-18] MEDS: Tiotropium Inhaler 18 MCG Inhalation Powder Cap Kit of 5 INH SCH (07:39)
[2020-09-18] MEDS: VANCOmycin 1.5 GM/300 ML 300 ML IV SCH (07:39)
[2020-09-18] MEDS: Formoterol/Mometasone 200-5 MCG 8.8 GM Inhaler IH SCH (07:43)
[2020-09-18 08:00] LABS: CHLORIDE,CL 104 mEq/L (98-106); SODIUM,NA 139 mEq/L (136-145)
[2020-09-18] MEDS ORDERED: [UNRECOGNIZED DRUG - OTHER] PO SCH (08:00)
[2020-09-18] MEDS ORDERED: Ascorbic Acid 500 MG Tab PO SCH (08:00)
[2020-09-18] MEDS ORDERED: FOLIC ACID PO SCH (08:00)
[2020-09-18] MEDS ORDERED: Beta-Carotene (Vitamin A) w/Vitamin C & E plus Minerals Tab PO SCH (08:00)
[2020-09-18] MEDS: Enoxaparin 40 MG/0.4 ML Syringe SUBCUT SCH (08:28)
--- NOTE | 2020-09-18 16:13 | PN ---
DATE: 09/17/2020 S: Julia is a 80-year-old male, well known to me, who presented to our facility yesterday with spiking temps, fevers and chills. Norah Ervin evaluated him and at the time he arrived in the emergency room he had a temp of 103.9, had some degree of cough, which is more of a chronic basis, but denied any chest pain or shortness of breath. He has a prostatic aortic valve as well as a prior right total knee arthroplasty and hardware in his right ankle from a prior fracture. At the time of his admission he had an elevated white blood cell count and CRP. Blood cultures were obtained. Urine was normal. Chest x-ray showed no obvious infiltrate. The patient was admitted and started on vancomycin and Zosyn. The patient feels much better today. He had some confusion when his temperature was really high yesterday, but for most part he has been appropriate and alert since admission. He has a T-max since last night of 99.8. His vitals have been stable. He had an echocardiogram this morning, tech did not see any visible signs of endocarditis. O: GENERAL: He is pleasant, alert, and cooperative. HEENT: Grossly benign. NECK: Supple. Veins are flat. LUNGS: Lung sounds are clear without any obvious rales, rhonchi, or wheeze. ABDOMEN: Soft and nontender. EXTREMITIES: Lower extremities have no edema. The knee is not swollen. There is a degree of swelling to the right ankle, which is chronic and unchanged. There is no erythema, calor, or tenderness to palpation. ASSESSMENT: 1. FEVER, UNDETERMINED ORIGIN. 2. HISTORY OF AORTIC VALVE REPLACEMENT. 3. HISTORY OF HYPERTENSION. 4. HYPERLIPIDEMIA. 5. HISTORY OF DEPRESSION. P: Echo has been done this morning. Both his white count and CRP have risen. We have him on appropriate antibiotics. We will wait for a Cardiology read on the echo. If he has any evidence of endocarditis, he will be sent for transfer. A long discussion with the patient in this regard was entertained and he understands the plan. DOUG/CARSON /[id number]
[2020-09-18] MEDS ORDERED: atorvaSTATin 20 MG Tab PO SCH (20:00)
--- NOTE | 2020-09-18 21:50 | DISCH ---
ADMISSION DIAGNOSES: 1. Fever, undetermined origin. 2. Sepsis. 3. Right ankle pain. 4. History of aortic valve replacement. DISCHARGE DIAGNOSIS: 1. FEVER, UNDETERMINED ORIGIN. 2. HISTORY OF AORTIC VALVE REPLACEMENT. 3. CHRONIC OBSTRUCTIVE PULMONARY DISEASE. 4. HYPERTENSION. 5. HYPERLIPIDEMIA. 6. HISTORY OF ANKLE FRACTURE WITH HARDWARE PLACEMENT. HISTORY: The patient is a 80-year-old male with a known history of aortic valve replacement within the last 2 years as well as a recent ankle fracture within the last year with hardware being placed in a prolonged healing. He presented to our facility with increased weakness and high fevers up to 105 at home. When he arrived at our facility, his temperature was 103. He was worked up in our emergency room by Norah Ervin and was found to have an elevated white count of 15,000. Lab work was otherwise stable, other than a CRP of 11.3. Urinalysis was completely clear. COVID testing was negative and chest x-ray was without any signs of pneumonia. He was admitted and put on empiric antibiotics in the form of vancomycin and Zosyn. HOSPITAL COURSE: The morning after admit, the patient was given a transthoracic echocardiogram which did not show any gross abnormalities. His white blood cell count continued to rise as did his CRP. He ran low-grade temps the day after admission, but otherwise was without any further complaint. In the last 24 hours, once again, he has spiked a temp up to 100.4, and his CRP continues to climb. He has been hemodynamically stable. It is worthy to note that his knee looks fine. He has no symptoms of pain in the knee or ankle, although his ankle remains chronically swollen since his fracture, neither of them show any outward or gross signs of aseptic joint. Because of his ongoing fevers, a rising CRP, and the need likely for a transesophageal echocardiogram, I was able to get a hold of Dr. Lance at [facility], who is the on-call hospitalist. He agrees to accept Mr. Elias on transfer for further definitive and expert care. He will continue on vancomycin and Zosyn. We are holding on his transfer until bed opens up, which should be in the next hour or 2. Mr. Elias understands the risks of transferring to BLS ground including accident, etc., but understands the benefit including a higher level of care and further diagnostic testing. COMPLICATIONS: During his stay were none. CONSULTATIONS: None. PROCEDURES: Echocardiogram. DISPOSITION: S ground transfer to [facility] care of Dr. Lance. DOUG/CARSON /[id number]
== END 2020-09-18 16:15 | DRG 872 ==
LOC: CC.ED 16:52 → CC.MS 18:48 → UNDOADMIN 19:00 → CC.MS 19:00
PROVIDERS: ADMIT Nurse Practitioner Family; ATTEND Family Medicine
DX: A41.9 Sepsis, unspecified organism (principal); J44.9 Chronic obstructive pulmonary disease, unspecified; I10 Essential (primary) hypertension; E78.5 Hyperlipidemia, unspecified; Z20.822 Contact with and (suspected) exposure to COVID-19; H91.90 Unspecified hearing loss, unspecified ear; I11.0 Hypertensive heart disease with heart failure; I50.9 Heart failure, unspecified; I25.10 Atherosclerotic heart disease of native coronary artery without angina pectoris; M25.571 Pain in right ankle and joints of right foot; J45.909 Unspecified asthma, uncomplicated; C85.90 Non-Hodgkin lymphoma, unspecified, unspecified site; Z98.890 Other specified postprocedural states; Z95.2 Presence of prosthetic heart valve; Z79.899 Other long term (current) drug therapy; I25.2 Old myocardial infarction; Z95.5 Presence of coronary angioplasty implant and graft; Z95.1 Presence of aortocoronary bypass graft; Z87.891 Personal history of nicotine dependence; Z85.72 Personal history of non-Hodgkin lymphomas
CPT/HCPCS: 36415; 70450; 71046; 73610-RT; 80048; 80053; 80202; 81003; 82550; 82947; 83605; 84484; 85025; 85610; 86140; 87040; 93005; 93010; 93306; 96365; 99285-25; A9270-GY; J1650; J2543; J3370; J7030; J7050; U0002

== ENCOUNTER 2022-09-16 13:17 | Emergency (ER) | payer MEDICARE ==
[2022-09-16] MEDS ORDERED: Sodium Chloride 0.9% 1,000 ML IV ONE (13:30)
[2022-09-16] MEDS ORDERED: fentaNYL 50 MCG/ML SDV IVPUSH ONE (13:34)
[2022-09-16] MEDS ORDERED: Sodium Chloride 0.9% 1,000 ML ONE (13:39)
[2022-09-16] MEDS ORDERED: propofoL 100 ML ONE ×2 (13:40→16:00)
[2022-09-16] MEDS ORDERED: Succinylcholine 200 MG/10 ML MDV ONE (13:41)
[2022-09-16] MEDS ORDERED: Rocuronium 50 MG/5 ML Vial ONE (13:41)
[2022-09-16 13:42] LABS: BASOPHILS ABSOLUTE AUTO 0.03 10^3/uL (0.00-0.50); BASOPHILS PERCENT AUTO 0.2 % (0-1); EOSINOPHILS ABSOLUTE AUTO 0.01 10^3/uL (0.00-1.50); EOSINOPHILS PERCENT AUTO 0.1 % (0-6); HEMATOCRIT 45.8 % (42.0-52.0); HEMOGLOBIN 15.9 g/dL (14.0-18.0); IMMATURE GRAN ABSOLUTE AUTO 0.05 10^3/uL (0.00-0.49); IMMATURE GRAN PERCENT AUTO 0.3 % (0.0-4.9); LYMPHOCYTES ABSOLUTE AUTO 3.35 10^3/uL (0.60-5.00); LYMPHOCYTES PERCENT AUTO 19.6 % (24-44); MEAN CORPUSCULAR HGB CONC 34.7 g/dL (32.0-36.0); MEAN CORPUSCULAR VOLUME 89.3 fL (83.0-97.0); MONOCYTES ABSOLUTE AUTO 1.12 10^3/uL (0.00-1.50); MONOCYTES PERCENT AUTO 6.6 % (0-10); NEUTROPHILS ABSOLUTE AUTO 12.51 x10^3/uL (1.80-8.00); NEUTROPHILS PERCENT AUTO 73.2 % (41-71); PLATELET COUNT,PLT 272 10^3/uL (150-400); RED BLOOD CELL COUNT 5.13 x10^6/uL (4.50-6.00); WHITE BLOOD CELL COUNT,WBC 17.1 10^3/uL (4.0-11.0)
[2022-09-16] MEDS ORDERED: fentaNYL 50 MCG/ML SDV ONE ×4 (13:44→14:50)
[2022-09-16 14:07] LABS: ALANINE AMINOTRANSFERASE,ALT 22 U/L (12-78); ALBUMIN 3.9 g/dL (3.4-5.0); ALKALINE PHOSPHATASE 88 U/L (46-116); ASPARTATE AMNIOTRANSFERASE,AST 22 U/L (15-37); BILIRUBIN TOTAL 0.6 mg/dL (0.0-1.0); BLOOD UREA NITROGEN,BUN 21 mg/dL (7-18); CALCIUM 9.3 mg/dL (8.4-10.1); CARBON DIOXIDE,CO2 22 mmol/L (21-32); CHLORIDE,CL 106 mEq/L (98-106); CREATININE 1.2 mg/dL (0.7-1.3); ESTIMATED GFR 61 mL/min (>=60); GLUCOSE RANDOM 129 mg/dL (75-99); POTASSIUM,K 4.1 mEq/L (3.5-5.0); PROTEIN TOTAL,TP 7.7 g/dL (6.4-8.2); SODIUM,NA 143 mEq/L (136-145)
[2022-09-16 14:08] LABS: ETHANOL BLOOD MEDICAL < 3 mg/dL (0-3)
[2022-09-16] MEDS ORDERED: Lactated Ringers 1,000 ML ONE ×2 (14:15→16:07)
[2022-09-16] MEDS ORDERED: ceFAZolin 1 GM Vial ONE (14:20)
[2022-09-16 14:27] LABS: APPEARANCE,URINE CLEAR (CLEAR); BILIRUBIN,URINE NEGATIVE (NEGATIVE); COLOR,URINE YELLOW (YELLOW); GLUCOSE,URINE NEGATIVE (NEGATIVE); KETONES,URINE NEGATIVE (NEGATIVE); LEUKOCYTE ESTERASE,URINE NEGATIVE (NEGATIVE); NITRITE,URINE NEGATIVE (NEGATIVE); OCCULT BLOOD,URINE NEGATIVE (NEGATIVE); PH,URINE 5.5 (4.5-8.0); PROTEIN,URINE NEGATIVE (NEGATIVE); UROBILINOGEN,URINE 0.2 EU/dL (0.2-1.0)
[2022-09-16 14:31] LABS: AMPHETAMINES,URINE NEGATIVE (NEGATIVE); BARBITURATES,URINE NEGATIVE (NEGATIVE); BENZODIAZEPINE,URINE NEGATIVE (NEGATIVE); MDMA (ECSTASY), URINE NEGATIVE (NEGATIVE); METHADONE,URINE NEGATIVE (NEGATIVE); METHAMPHETAMINES,URINE NEGATIVE (NEGATIVE); OPIATES,URINE NEGATIVE (NEGATIVE); OXYCODONE,URINE NEGATIVE (NEGATIVE); PHENCYCLIDINE,URINE NEGATIVE (NEGATIVE); TCA,URINE NEGATIVE (NEGATIVE)
[2022-09-16 14:44] LABS: BACTERIA,URINE RARE /HPF (NOT SEEN); EPITHELIAL CELLS,URINE OCCASIONAL /HPF (NOT SEEN); RBC,URINE NOT SEEN /HPF (0-5); WBC,URINE 0-5 /HPF (0-5)
[2022-09-16] MEDS ORDERED: Sodium Chloride 0.9% 100 ML ONE (14:54)
[2022-09-16] MEDS ORDERED: fentaNYL 100 MCG/2 ML SDV ONE (14:54)
[2022-09-16] MEDS ORDERED: Midazolam 1 MG/ML 2 ML SDV ONE (15:02)
[2022-09-16] MEDS ORDERED: FENTANYL IV SCH (15:15)
[2022-09-16] MEDS ORDERED: SODIUM CHLORIDE 0.9% IV SCH (15:15)
[2022-09-16 16:15] LABS: O2 DELIVERY DEVICE VENTILATOR; PCO2 ARTERIAL 41 mm/Hg0 (35-45); PH,ARTERIAL 7.37 (7.35-7.45); PO2 ARTERIAL 259 mm/Hg (80-100)
[2022-09-16 16:16] LABS: BASE EXCESS ARTERIAL -1.1 (-2.0-3.0); BICARBONATE,ARTERIAL 24.1 mm/L (22.0-26.0); O2 SATURATION ARTERIAL 100 % (95-98)
== END 2022-09-16 16:35 ==
LOC: CC.ED 13:17
DX: T23.232A Burn of second degree of multiple left fingers (nail), not including thumb, initial encounter (principal); T23.231A Burn of second degree of multiple right fingers (nail), not including thumb, initial encounter; T22.252A Burn of second degree of left shoulder, initial encounter; T22.251A Burn of second degree of right shoulder, initial encounter; T20.25XA Burn of second degree of scalp [any part], initial encounter; T20.212A Burn of second degree of left ear [any part, except ear drum], initial encounter; T20.211A Burn of second degree of right ear [any part, except ear drum], initial encounter; T21.21XA Burn of second degree of chest wall, initial encounter; I25.10 Atherosclerotic heart disease of native coronary artery without angina pectoris; I11.0 Hypertensive heart disease with heart failure; I50.9 Heart failure, unspecified; I25.2 Old myocardial infarction; J45.909 Unspecified asthma, uncomplicated; Z87.891 Personal history of nicotine dependence; Z79.899 Other long term (current) drug therapy; Z95.1 Presence of aortocoronary bypass graft; X14.1XXA Other contact with hot air and other hot gases, initial encounter; Y99.0 Civilian activity done for income or pay
CPT/HCPCS: 31500; 36415; 36600; 43752; 51702; 71045; 80053; 80305-QW; 80307; 81001; 82803; 85025; 93005; 99291-25; J0330

== ENCOUNTER 2023-11-26 07:31 | Day surgery (SDC) | payer MEDICARE ==
[2023-11-26] MEDS: Lactated Ringers 1,000 ML IV SCH (07:41)
[2023-11-26] MEDS ORDERED: fentaNYL 50 MCG/ML SDV ONE (08:00)
[2023-11-26] MEDS ORDERED: Lidocaine 2% 20 ML MDV ONE (08:00)
[2023-11-26] MEDS ORDERED: Propofol 200 MG/20 ML SDV ONE ×2 (08:00)
[2023-11-26] MEDS ORDERED: Phenylephrine 1% 10 MG/ML SDV ONE (08:00)
[2023-11-26] MEDS ORDERED: Ketamine 200 MG/20 ML MDV ONE (08:00)
== END 2023-11-26 09:50 | disposition home or self-care (01) ==
LOC: CC.SDS 07:31
PROVIDERS: ATTEND Family Medicine
DX: D12.2 Benign neoplasm of ascending colon (principal); K29.50 Unspecified chronic gastritis without bleeding; K51.40 Inflammatory polyps of colon without complications; K57.30 Diverticulosis of large intestine without perforation or abscess without bleeding; R13.10 Dysphagia, unspecified; I10 Essential (primary) hypertension; E03.9 Hypothyroidism, unspecified; E78.5 Hyperlipidemia, unspecified; Z79.890 Hormone replacement therapy; Z79.899 Other long term (current) drug therapy
CPT/HCPCS: 00813; 43239; 45385; 87081; 88305; 99100; J2371; J2704; J3010; J3490; J7120